=== PATIENT | male | born 1995 | race Caucasian/White ===

== ENCOUNTER 2016-11-11 22:02 | Emergency (ER) ==
[2016-11-11 22:09] VITALS: BP 123/78; TEMP 99.1; BMI 21.6
[2016-11-11] MEDS ORDERED: DILAUDID 2 MG/ML SYRINGE IM STA (22:23)
[2016-11-11] MEDS ORDERED: PHENERGAN 25 MG/ML VIAL IM STA (22:23)
[2016-11-11] MEDS ORDERED: TORADOL IM STA (22:23)
--- NOTE | 2016-11-11 22:28 | ED.PDOC ---
General ED Provider: Dr. KIRSTIE WEAVER-ER Chief Complaint: Headache Stated Complaint: regis got a migraine lucia--i get them every 2mos and usually motrin helps--its throbbing with nausea--denies fever or chills Time Seen by Physician: 22:05 Mode of Arrival: Walk-In Information Source: Patient Exam Limitations: No limitations Nursing and Triage Documentation Reviewed and Agree: Yes Neurological Complaint Exam - Headache Complaint/Exam Onset: Gradual Duration: several hours Symptoms Are: Still present Timing: Constant Worst Headache Ever: No Initial Severity: Mild Current Severity: Moderate Location: Diffuse Character: Reports: Dull, Throbbing, Pressure, Typical headache, Migraine Aggravating: Reports: Bright lights Alleviating: Reports: None Associated Signs and Symptoms: Reports: Nausea. Denies: Dizziness, Seizure, Vomiting, Sinus pressure, Fever, Neck pain, Neck stiffness, Decreased LOC, Visual changes Related History: Reports: Similar episode (long hx of migraine lucia). Denies: Recent trauma, Remote trauma Related Surgical History: Reports: None SAH Risk Factors: Reports: None Meningitis Risk Factors: Reports: None SDH Risk Factors: Reports: Male Temporal Arteritis Risk Factors: Reports: Normal Head CT Within Last 12 Months: No Fundoscopic Exam: Present: Normal Findings Papilledema Present: No Temporal Artery Tenderness: Present: None Sinus Tenderness: Present: None TMJ Tenderness: Present: None Glascow Coma Scale (see protocol): 15 Meningeal Signs Positive: No Pain on Passive Flexion-Positive Kernig's: No ROM Limited In: No Limitiations Focal Weakness: Present: None Focal Sensory Loss: Present: None Gait: Normal Nystagmus Present: No Gag Reflex Present: Yes [id number]: Normal Findings Romberg Test Positive: No Babinski Sign: Negative Right, Negative Left Heel to Toe Normal: Yes Differential Diagnoses: Migraine Review of Systems - Review Of Systems Constitutional: Reports: No symptoms Eyes: Reports: No symptoms Ears, Nose, Mouth, Throat: Reports: No symptoms Respiratory: Reports: No symptoms Cardiac: Reports: No symptoms GI: Reports: Nausea : Reports: No symptoms Musculoskeletal: Reports: No symptoms Skin: Reports: No symptoms Neurological: Reports: Headache Endocrine: Reports: No symptoms Hematologic/Lymphatic: Reports: No symptoms All Other Systems: Reviewed and Negative Past Medical History - Past Medical History Previously Healthy: Yes Endocrine: Reports: None Cardiovascular: Reports: None Respiratory: Reports: None Hematological: Reports: None Gastrointestinal: Reports: None Genitourinary: Reports: None Neuro/Psych: Reports: Migraine Musculoskeletal: Reports: None Cancer: Reports: None Other Pertinent Past Medical History: Lower extremity deformity . - Surgical History General Surgical History: Reports: Hernia Repair - Family History Family History: Reports: None - Social History Smoking Status: Never smoker Hx Substance Use: No Alcohol Screening: None Lives: With family - Immunizations Tetanus Shot up to Date: Yes Physical Exam - Physical Exam Appearance: Well-appearing, No pain distress, Well-nourished Pain Distress: Moderate Eyes: ELIZABETH, EOMI, Conjunctiva clear ENT: Ears normal, Nose normal, Oropharynx normal Neck: Supple Respiratory: Airway patent Cardiovascular: RRR, Pulses normal, No rub, No murmur GI/: Soft, Nontender, No masses, Bowel sounds normal, No Organomegaly Musculoskeletal: Normal strength, ROM intact, No edema, No calf tenderness Skin: Warm, Dry, Normal color Neurological: Sensation intact, Motor intact, Reflexes intact, Cranial nerves intact, Alert, Oriented Psychiatric: Affect appropriate, Mood appropriate Interpretation - Radiology Interpretation Radiology Interpretation By: Radiologist Radiology Results: Negative Exam Interpreted: CT Scan Re-Evaluation - Re-Evaluation Time of Re-Evaluation: 23:00 Status: Improved Vital Signs Stable: Yes Pain Level: 1 Appearance: NAD Lungs: Clear Skin: Warm and Dry Neuro: Alert and Oriented X3 CV: RRR Critical Care Note - Critical Care Note Total Time (mins): 0 Course - Course Orders, Labs, Meds: Orders Category Date Time Status Hydromorphone HCl/Pf [Dilaudid 2 mg/ml Syringe] MEDS 11/11/16 22:23 Discontinued 2 mg IM ONCE STA Ketorolac Tromethamine [Toradol] MEDS 11/11/16 22:23 Discontinued 60 mg IM ONCE STA Promethazine HCl [Phenergan 25 mg/ml Vial] MEDS 11/11/16 22:23 Discontinued 25 mg IM ONCE STA CT HEAD W/O CONTRAST Stat RADS 11/11/16 22:22 Completed Medications Discontinued Medications Generic Name Dose Route Start Last Admin Trade Name Freq PRN Reason Stop Dose Admin Hydromorphone HCl 2 mg 11/11/16 22:23 11/11/16 22:52 Dilaudid 2 Mg/Ml Syringe IM 11/11/16 22:24 2 mg ONCE STA Administration Ketorolac Tromethamine 60 mg 11/11/16 22:23 11/11/16 22:51 Toradol IM 11/11/16 22:24 60 mg ONCE STA Administration Promethazine HCl 25 mg 11/11/16 22:23 11/11/16 22:52 Phenergan 25 Mg/Ml Vial IM 11/11/16 22:24 25 mg ONCE STA Administration Vital Signs: Temp Pulse Resp BP Pulse Ox 11/11/16 22:03 99.1 F 85 20 123/78 97 Departure - Departure Time of Disposition: 22:39 Disposition: HOME SELF-CARE Discharge Problem: Migraine Instructions: Migraine Headache (ED) Condition: Good Pt referred to PMD for follow-up: Yes Additional Instructions: f/u with pcp Allergies/Adverse Reactions: Allergies No Known Allergies Allergy (Verified 11/11/16 22:03) Home Medications: Ambulatory Orders 1 [No Reported Medications] 09/14/15 Disposition Discussed With: Patient, Family
--- NOTE | 2016-11-11 22:49 | CT ---
EXAM: CT brain without contrast HISTORY: Migraine headache TECHNIQUE: CT of the brain without intravenous contrast FINDINGS: There is no acute hemorrhage midline shift or mass effect. No hydrocephalus or abnormal extra-axial fluid collection. No significant parenchymal attenuation abnormality. The bony cranium appears normal. The visualized paranasal sinuses are clear. Soft tissues without significant abnorm ality. IMPRESSION: 1. CT of the brain within normal limits.
== END 2016-11-11 23:40 | disposition home or self-care (01) ==
LOC: ED 22:02
DX: G43.909 Migraine, unspecified, not intractable, without status migrainosus (principal)
CPT/HCPCS: 96372; 99283

== ENCOUNTER 2017-06-03 20:08 | Emergency (ER) ==
[2017-06-03 20:25] VITALS: BP 133/88; BMI 21.2
[2017-06-03] MEDS: MOTRIN SUSP PO STA (20:37)
[2017-06-03] MEDS: PHENERGAN WITH CODEINE 6.25/10 MG/5 ML PO STA (20:37)
--- NOTE | 2017-06-03 21:13 | ED.PDOC ---
General ED Provider: Dr. KIRSTIE WEAVER-ER Chief Complaint: Fever Stated Complaint: im coughing, my body hurts and im running a fever Time Seen by Physician: 20:25 Mode of Arrival: Walk-In Information Source: Patient, Family Exam Limitations: No limitations Nursing and Triage Documentation Reviewed and Agree: Yes Reviewed sepsis parameters & appropriate labs ordered?: Yes System Inflammatory Response Syndrome: Not Applicable Sepsis Protocol: For patient's 13 years and over: Temp is 96.8 and below OR 101 and greater Pulse >90 BPM Resp >20/minute Acutely Altered Mental Status Are patient's symptoms suggestive of a new infection, such as: -Pneumonia -Skin, Soft Tissue -Endocarditis -UTI -Bone, Joint Infection -Implantable Device -Acute Abdominal Infection -Wound Infection -Meningitis -Blood Stream Catheter Infection -Unknown Respiratory Complaint Exam - Respiratory Complaint/Exam Onset/Duration: 3 days Symptoms Are: Still present Timing: Intermittent Current Severity: Mild Location: Chest Character: Reports: Non-productive cough Aggravating: Reports: URI Alleviating: Reports: None Associated Signs and Symptoms: Reports: Fever, Chills, URI, Nasal congestion. Denies: Rapid breathing, Dyspnea, Chest pain, Pleuritic chest pain, Wheezing, Hemoptysis, Dizziness, Calf pain, Calf swelling, Edema, Hoarseness, Sinus discomfort, Vomiting, Sore throat, Weight loss, Decreased oral intake, Increased thirst, Increased appetite History of Healthcare-Acquired Pneumonia: No Review of Systems - Review Of Systems Constitutional: Reports: Chills, Fever Eyes: Reports: No symptoms Ears, Nose, Mouth, Throat: Reports: Epistaxis Respiratory: Reports: Cough Cardiac: Reports: No symptoms GI: Reports: No symptoms : Reports: No symptoms Musculoskeletal: Reports: No symptoms Skin: Reports: No symptoms Neurological: Reports: No symptoms Endocrine: Reports: No symptoms Hematologic/Lymphatic: Reports: No symptoms All Other Systems: Reviewed and Negative Past Medical History - Past Medical History Previously Healthy: Yes Endocrine: Reports: None Cardiovascular: Reports: None Respiratory: Reports: None Hematological: Reports: None Gastrointestinal: Reports: None Genitourinary: Reports: None Neuro/Psych: Reports: Migraine Musculoskeletal: Reports: None Cancer: Reports: None Other Pertinent Past Medical History: Lower extremity deformity . - Surgical History General Surgical History: Reports: Hernia Repair - Family History Family History: Reports: None - Social History Smoking Status: Never smoker Hx Substance Use: No Alcohol Screening: None Lives: With family - Immunizations Tetanus Shot up to Date: Yes Physical Exam - Physical Exam Appearance: Well-appearing, No pain distress, Well-nourished Eyes: ELIZABETH ENT: Rhinorrhea Respiratory: Airway patent Cardiovascular: RRR GI/: Soft Musculoskeletal: Normal strength, ROM intact, No edema, No calf tenderness Skin: Warm, Dry, Normal color Neurological: Sensation intact, Motor intact, Reflexes intact, Cranial nerves intact, Alert, Oriented Psychiatric: Affect appropriate, Mood appropriate Re-Evaluation - Re-Evaluation Time of Re-Evaluation: 21:17 Status: Improved (feeling better--temp down--lucia better) Vital Signs Stable: Yes Pain Level: 0 Appearance: NAD Lungs: Clear Skin: Warm and Dry Neuro: Alert and Oriented X3 CV: RRR Critical Care Note - Critical Care Note Total Time (mins): 0 Course - Course Orders, Labs, Meds: Lab Review 06/03/17 20:27 Influenza A (Rapid) Positive by naat H Influenza B (Rapid) Negative by naat Orders Category Date Time Status MOLECULAR FLU A/B Stat LAB 06/03/17 20:27 Completed MOLECULAR GROUP A STREP Stat LAB 06/03/17 20:27 Completed Codeine/Promethazine Syrup [Phenergan with Codeine 6.25 MEDS 06/03/17 20:28 Discontinued /10 mg/5 ml] 10 ml PO ONCE STA Ibuprofen Susp [Motrin Susp] MEDS 06/03/17 20:28 Discontinued 800 mg PO ONCE STA CXR [CHEST, 2 VIEWS PA & LAT] Stat RADS 06/03/17 20:28 Taken Medications Discontinued Medications Generic Name Dose Route Start Last Admin Trade Name Freq PRN Reason Stop Dose Admin Ibuprofen 800 mg 06/03/17 20:28 06/03/17 20:37 Motrin Susp PO 06/03/17 20:29 800 mg ONCE STA Administration Promethazine HCl/Codeine 10 ml 06/03/17 20:28 06/03/17 20:37 Phenergan With Codeine 6.25/10 Mg/5 Ml PO 06/03/17 20:29 10 ml ONCE STA Administration Vital Signs: Temp Pulse Resp BP Pulse Ox 06/03/17 20:18 101.4 F H 126 H 20 133/88 95 Departure - Departure Time of Disposition: 21:18 Disposition: HOME SELF-CARE Discharge Problem: Influenza A Instructions: Influenza (ED) Condition: Good Pt referred to PMD for follow-up: Yes Additional Instructions: tamiflu 75mg bid x 5 days--fluids..motrin for temp and pain--recheck in 72hrs if not better Allergies/Adverse Reactions: Allergies No Known Allergies Allergy (Verified 06/03/17 20:25) Home Medications: Ambulatory Orders 1 [No Reported Medications] 09/14/15 Disposition Discussed With: Patient, Family
[2017-06-03 21:21] VITALS: TEMP 100.8
--- NOTE | 2017-06-04 07:38 | DI ---
EXAM: Chest two view, frontal and lateral views. HISTORY: Cough. COMPARISON: None available. FINDINGS: The heart size is normal. There is no pulmonary vascular congestion. The lungs are clear . No pleural effusion or pneumothorax is seen. No acute osseous abnormality identified. 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 IMPRESSION: No acute cardiopulmonary process.
== END 2017-06-03 21:27 | disposition home or self-care (01) ==
LOC: ED 20:08
DX: J09.X2 Influenza due to identified novel influenza A virus with other respiratory manifestations (principal)
CPT/HCPCS: 87502; 87651; 99283

== ENCOUNTER 2017-06-05 00:16 | Emergency (ER) ==
[2017-06-05 00:16] VITALS: BMI 21.2
[2017-06-05 00:28] VITALS: BP 129/84; TEMP 100.1
[2017-06-05] MEDS ORDERED: DECADRON 4 MG/ML SDV IM STA (00:34)
--- NOTE | 2017-06-05 00:37 | ED.PDOC ---
General ED Provider: Dr. AMARI DUGAN Chief Complaint: Fever Stated Complaint: patient was here yesterday, tested positive for the Flu A,. still having fever, Did not get medications yet. Time Seen by Physician: 00:35 Mode of Arrival: Walk-In Information Source: Patient Nursing and Triage Documentation Reviewed and Agree: Yes Reviewed sepsis parameters & appropriate labs ordered?: No System Inflammatory Response Syndrome: Not Applicable Sepsis Protocol: For patient's 13 years and over: Temp is 96.8 and below OR 101 and greater Pulse >90 BPM Resp >20/minute Acutely Altered Mental Status Are patient's symptoms suggestive of a new infection, such as: -Pneumonia -Skin, Soft Tissue -Endocarditis -UTI -Bone, Joint Infection -Implantable Device -Acute Abdominal Infection -Wound Infection -Meningitis -Blood Stream Catheter Infection -Unknown Miscellaneous Complaint Exam - Febrile Illness/Adult Complaint/Exam Symptoms Are: Still present Timing: Constant Episodes Lasting: Hours Initial Severity: Moderate Current Severity: Moderate Aggravating: Reports: None Alleviating: Reports: None Associated Signs and Symptoms: Reports: Headache, Cough, Nausea, Vomiting. Denies: Fluid intake, Short of air, Sore throat, Chills, Diaphoresis, Dysuria, Arthralgia, Stiff neck, Myalgia, Rash, Altered mental status Related History: Reports: Similar episode Pseudomonas Risk Factors: Reports: None Serious Bacterial Infection Risk Factors: Reports: None Current Antibiotic Use: No Differential Diagnoses: Viremia Review of Systems - Review Of Systems Constitutional: Reports: Fever, Malaise, Weakness Eyes: Reports: No symptoms Ears, Nose, Mouth, Throat: Reports: Throat pain Respiratory: Reports: Cough Cardiac: Reports: No symptoms GI: Reports: No symptoms : Reports: No symptoms Musculoskeletal: Reports: No symptoms Skin: Reports: No symptoms Neurological: Reports: No symptoms Endocrine: Reports: No symptoms Hematologic/Lymphatic: Reports: No symptoms All Other Systems: Reviewed and Negative Past Medical History - Past Medical History Previously Healthy: Yes Endocrine: Reports: None Cardiovascular: Reports: None Respiratory: Reports: None Hematological: Reports: None Gastrointestinal: Reports: None Genitourinary: Reports: None Neuro/Psych: Reports: Migraine Musculoskeletal: Reports: None Cancer: Reports: None Other Pertinent Past Medical History: Lower extremity deformity . - Surgical History General Surgical History: Reports: Hernia Repair - Family History Family History: Reports: None - Social History Smoking Status: Never smoker Hx Substance Use: No Alcohol Screening: None - Immunizations Tetanus Shot up to Date: Yes Physical Exam - Physical Exam Appearance: Ill-appearing, Thin Eyes: ELIZABETH, EOMI, Conjunctiva clear ENT: Erythema Respiratory: Airway patent, Breath sounds clear, Breath sounds equal, Respirations nonlabored Cardiovascular: RRR, Pulses normal, No rub, No murmur GI/: Soft, Nontender, No masses, Bowel sounds normal, No Organomegaly Musculoskeletal: Normal strength, ROM intact, No edema, No calf tenderness Skin: Warm, Dry, Normal color Neurological: Sensation intact, Motor intact, Reflexes intact, Cranial nerves intact, Alert, Oriented Psychiatric: Affect appropriate, Mood appropriate Critical Care Note - Critical Care Note Total Time (mins): 10 Course - Course Orders, Labs, Meds: Orders Category Date Time Status Dexamethasone 4 mg/ml Inj [Decadron 4 mg/ml Sdv] MEDS 06/05/17 00:34 Stat 4 mg IM ONCE STA Medications Generic Name Dose Route Start Last Admin Trade Name Freq PRN Reason Stop Dose Admin Dexamethasone Sodium Phosphate 4 mg 06/05/17 00:34 Decadron 4 Mg/Ml Sdv IM 06/05/17 00:35 ONCE STA Vital Signs: Temp Pulse Resp BP Pulse Ox 06/05/17 00:21 100.1 F H 117 H 20 129/84 94 L Departure - Departure Time of Disposition: 00:37 Disposition: HOME SELF-CARE Discharge Problem: Influenza A Instructions: Influenza (ED) Condition: Stable Pt referred to PMD for follow-up: Yes Additional Instructions: Increase Hydration Tylenol prn soft diet Prescriptions: Guaifenesin/Dextromethorphan [Robitussin Cough-Chest Dm Liq] 10 ml PO TID #1 bottle Ondansetron [Zofran Odt] 4 mg PO Q8H #20 tab.rapdis Prednisone 10 mg PO BIDWM #14 tablet Allergies/Adverse Reactions: Allergies No Known Allergies Allergy (Verified 06/05/17 00:28) Home Medications: Ambulatory Orders Guaifenesin/Dextromethorphan [Robitussin Cough-Chest Dm Liq] 10 ml PO TID #1 bottle 06/05/17 Ondansetron [Zofran Odt] 4 mg PO Q8H #20 tab.rapdis 06/05/17 Prednisone 10 mg PO BIDWM #14 tablet 06/05/17 Disposition Discussed With: Patient, Family
[2017-06-05] MEDS ORDERED: ZOFRAN ODT PO STA (00:38)
== END 2017-06-05 00:56 | disposition home or self-care (01) ==
LOC: ED 00:16
DX: J09.X2 Influenza due to identified novel influenza A virus with other respiratory manifestations (principal)
CPT/HCPCS: 96372; 99282